=== PATIENT | female | born 1995 | race Caucasian/White ===

== ENCOUNTER 2016-06-11 12:32 | Emergency (ER) | payer OTHER ==
[~2016-06-11] VITALS: Ht 160 cm; Wt 73.9 kg
[2016-06-11 12:43] VITALS: BP 136/78; PULSE 102; RESP 16; TEMP 98.2; O2SAT 100
[2016-06-11] MEDS ORDERED: METOCLOPRAMIDE HCL 10 MG/2 ML VIAL IVP ONE (13:00)
[2016-06-11 13:13] LABS: BILIRUBIN,URINE 1+ (NEGATIVE); BLOOD, URINE NEGATIVE (NEGATIVE); CLARITY/URINE CLEAR (CLEAR); COLOR,URINE YELLOW (YELLOW); GLUCOSE,URINE NEGATIVE (NEGATIVE); KETONES,URINE 3+ (NEGATIVE); LEUKOCYTE ESTERASE ,URINE NEGATIVE (NEGATIVE); NITRITE, URINE POSITIVE (NEGATIVE); PH,URINE 5.5 (5.0-8.0); PROTEIN URINE NEGATIVE (NEGATIVE); UROBILINOGEN,URINE 0.2 (0.2-1.0)
[2016-06-11 13:21] LABS: BACTERIA,URINE MANY /HPF (None Seen); MUCUS,URINE 1+ /LPF (None Seen); RBC,URINE 0-3 /HPF (0-3)
--- NOTE | 2016-06-11 14:23 | NUR ---
Patient to ER bed 3 to gown for evaluation. Side rails up. Report given to Waqas QUIROZ.
--- NOTE | 2016-06-11 14:25 | NUR ---
ED MD Small at bedside for medical examination.
--- NOTE | 2016-06-11 14:27 | NUR ---
PT arrived to the ED via walk in with chief complaint of mid epigastic ABD pain x 1 day at 5/10 . N/V/D present. PT 17 weeks . Unable to tolerate PO intake. No ABD distention present. Family at bedside. Will continue to monitor
--- NOTE | 2016-06-11 14:30 | NUR ---
Medications administered per MD order. PT tolerated well. Will continue to monitor
--- NOTE | 2016-06-11 14:55 | NUR ---
Denies N/V after medication administration. Tolerated water PO. No report of dizziness
[2016-06-11 14:58] LABS: BASOPHILS % (AUTO) 0.1 % (0.0-2.0); EOSINOPHILS % (AUTO) 0.1 % (0.0-4.0); HEMATOCRIT 32.5 % (36-48); HEMOGLOBIN 11.5 g/dL (12.0-16.0); LYMPHOCYTES # (AUTO) 1.1 K/uL (1.0-5.5); LYMPHOCYTES % (AUTO) 17.1 % (20.5-51.5); MEAN CORPUSCULAR HEMOGLOBIN 32 pg (27-31); MEAN CORPUSCULAR HGB CONC 36 % (32-36); MEAN CORPUSCULAR VOLUME 89 fL (79.0-98.0); MONOCYTES # (AUTO) 0.7 K/uL (0.0-1.0); MONOCYTES % (AUTO) 10.7 % (1.7-9.3); NEUTROPHILS # (AUTO) 4.7 K/uL (1.8-7.7); PLATELET COUNT (AUTO) 202 K/uL (130-430); RED BLOOD CELL COUNT(AUTO) 3.64 MIL/uL (4.2-6.2); RED CELL DISTRIBUTION WIDTH 12.6 % (9.0-15.0); WHITE BLOOD COUNT (AUTO) 6.5 K/uL (4.5-11.0)
--- NOTE | 2016-06-11 15:02 | NUR ---
Note sunitaone in EDM - 06/11/16 at 1508 by [email or web address] PT arrived to the ED via walk in with chief complain of mid epigastic ABD pain x 1 day at 5/10. N/V/D present. Unable to tolerate PO intake. No ABD distention present. Family at bedside. Will continue to monitor
[2016-06-11 15:13] LABS: CALCIUM 8.8 mg/dL (8.4-11.0); CREATININE 0.58 mg/dL (0.55-1.30); POTASSIUM 3.2 mmol/L (3.5-5.1)
[2016-06-11 15:18] LABS: ALBUMIN 3.3 g/dL (3.4-4.8); TOTAL BILIRUBIN 0.3 mg/dL (0.0-1.0)
[2016-06-11 15:46] VITALS: BP 101/68; PULSE 88; RESP 18; TEMP 98.2; O2SAT 100
--- NOTE | 2016-06-11 15:51 | NUR ---
Patient given written and verbal discharge instructions and verbalizes understanding. ER MD discussed with patient the results and treatment provided. Given copies of tests performed in ER. Patient in stable condition. ID arm band removed. IV catheter removed intact and dressing applied, no active bleeding. Rx of Nitrofurantoin and Reglan given. Patient educated on pain management and to follow up with PMD. Pain Scale 2. Opportunity for questions provided and answered.
== END 2016-06-11 15:46 | disposition home or self-care (01) ==
LOC: SED 12:32
DX: O23.42 Unspecified infection of urinary tract in pregnancy, second trimester (principal); Z3A.18 18 weeks gestation of pregnancy
CPT/HCPCS: 36415; 76700; 76805; 80053; 81000; 83690; 85025; 86901; 87086; 96374; 99285; J2765